=== PATIENT | female | born 1955 | race African-American/Black ===

== ENCOUNTER 2018-01-29 07:14 | Day surgery (SDC) | payer OTHER ==
[2018-01-25 11:02] VITALS: BMI 52.5
[2018-01-29] MEDS ORDERED: MIDAZOLAM HCL 2 MG/2 ML SINGLE DOSE VIAL ONE ×2 (10:34→10:48)
[2018-01-29] MEDS ORDERED: DEXAMETHASONE SOD PHOSPHATE/PF 10 MG/ML SDV ONE (10:47)
[2018-01-29] MEDS ORDERED: ROPIVACAINE HCL 0.5% 30ML VIAL ONE (10:48)
[2018-01-29] MEDS ORDERED: ceFAZolin SODIUM 1 GM VIAL IVPB ONE (11:29)
[2018-01-29] MEDS ORDERED: DEXAMETHASONE SOD PHOSPHATE 4 MG/1 ML VIAL ONE (11:32)
[2018-01-29] MEDS ORDERED: ONDANSETRON 4 MG/2 ML VIAL ONE (11:32)
[2018-01-29] MEDS ORDERED: ceFAZolin SODIUM 1 GM VIAL ONE (11:32)
[2018-01-29] MEDS ORDERED: PROPOFOL 20 ML ONE ×2 (11:46→12:35)
[2018-01-29] MEDS ORDERED: TRANEXAMIC ACID 1000 MG/10 ML VIAL ONE (12:18)
[2018-01-29] MEDS ORDERED: BENZOIN TINCTURE SWABSTICK TP ONE (12:39)
--- NOTE | 2018-01-29 13:02 | OP ---
Operative Note - Note: Operative Date: 01/29/18 Pre-Operative Diagnosis: Right shoulder impingement syndrome Operation: Right shoulder open: 1. Neer decompression (acromioplasty & CA ligament release). 2. Josep procedure (distal claviculectomy) Post-Operative Diagnosis: Same as Pre-op Surgeon: Duane Hedrick Supervisor Frame Assembly: Hang Hedrick Anesthesiologist/SELLING SPECIALIST: Mary Jane Floyd Anesthesia: Local (Interscalene block) Estimated Blood Loss (mls): 25 Fluid Volume Replaced (mls): 500 Operative Report Dictated: Yes
[2018-01-29 13:54] VITALS: PULSE 65
[2018-01-29 14:36] VITALS: BP 168/67; TEMP 98.1
--- NOTE | 2018-01-29 18:30 | OP ---
DATE OF OPERATION: 01/29/2018 SURGEON: Duane Hedrick M.D. [employer] DIRECTOR: Hang Hedrick M.D. PREOPERATIVE DIAGNOSIS: Right impingement syndrome shoulder with small rotator cuff tear. POSTOPERATIVE DIAGNOSIS: Right impingement syndrome shoulder with small rotator cuff tear. OPERATION PERFORMED: 1. Josep excision arthroplasty right pedicle. 2. Acromioplasty with transection of coracoacromial ligament. 3. Exploration of rotator cuff repair of small tear. ANESTHESIA: Conscious sedation with scalene block. ANTIBIOTICS GIVEN: 2 g Kefzol, 1 g vancomycin. OVERALL COMMENT: Morbid obesity. DESCRIPTION OF PROCEDURE: Patient correctly identified, brought in the operating room. Right upper extremity was prepped, predraped in the routine manner with Betadine scrub solution, wiped off with alcohol, DuraPrep applied, timeout was called. Imaging was available for intraoperative evaluation. The right upper shoulder region was free draped using U drapes both from above and below. Entire dressing was sealed including the axilla. Incision was made from the tip of the coracoid to the tip of the acromion. A dissection was taken through the skin and subcutaneous tissue to the level of the deltoid muscle, and plane was developed between the muscle and the subcutaneous tissue right to the level of the clavicle and above the clavicle. A sharp Hohmann placed on the posterior surface of the clavicle and distally on the anterior aspect of the clavicle, lifting the clavicle and keeping the undersurface out of harm's way. The AC joint clearly identified. The capsule was retained, and a beveled incision made into the clavicle, approximately 1 cm of clavicle was resected. This gave easy access to the coracoacromial ligament. Using an army-nav retractor, the muscle was lifted off the CA ligament. Peanut facilitated development of the plane. CA ligament was clearly identified visually and transected using a 15 blade knife and transected from the inferior margin of the CA ligament right up into the shoulder joint itself, extending into the plane beyond the CA ligament as this is a continual sheet of tissue accordingly. At this point, with finger dissection, adhesions were broken in subacromial space. Arm was gently pulled downwards. A Hohmann retractor was placed on the undersurface of the acromion which helped lever the femoral head downwards. A sharp beak of bone digging into the rotator cuff was identified, and thus using a small sagittal saw, this was resected, basically raising the roof of the shoulder joint itself. The cut was made parallel to the actual acromion itself. Once this had been performed, the bursa was incised and opened. The rotator cuff visualized directly by performing a shoulder complete range of motion. A small tear was noted and a number 1 Vicryl suture was utilized to repair this, that is a 1 single suture sealed a small tear which would become a big tear. The wounds were thoroughly lavaged, hemostasis was achieved. Closure: capsule deltoid muscle with 1 Vicryl, subcutaneous 1 Vicryl and skin 3-0 Monocryl with Steri-Strips. Drainage none. Wound was completely dry at the time of leaving from the OR. MD JELLY Geronimo/[id number] MTDD
[2018-01-29] MEDS ORDERED: PATIENT'S OWN MEDICATION (NON-FORMULARY) (Metformin Hcl [Metformin Hcl Er] 500 MG) PO SCH (22:00)
[2018-01-30] MEDS ORDERED: PATIENT'S OWN MEDICATION (NON-FORMULARY) (Valsartan/Hydrochlorothiazide [Valsartan-Hctz 16 PO SCH (10:00)
--- NOTE | 2018-02-05 14:25 | PATH ---
Surgical Pathology Report Patient Name: PANCHO RAI Med. Rec. #: [id number] /Age/Gender: 1955 (Age: 62) / F Account: [id number] Location: [facility] AMBULATORY Taken: 01/29/2018 Received: 01/29/2018 Reported: 02/03/2018 Physicians: Duane Hedrick M.D. Specimen(s) Received DISTAL CLAVICLE LEFT SHOULDER Clinical History Right shoulder impingement syndrome Final Diagnosis SHOULDER, DISTAL CLAVICLE, RIGHT, OPEN NEER DECOMPRESSION ARNOLD PROCEDURE: BONE AND CARTILAGE WITH DEGENERATIVE CHANGES. BONE MARROW WITH TRILINEAGE HEMATOPOIESIS. Electronically Signed Mago Lancaster M.D. Gross Description Received in formalin labeled "distal clavicle right shoulder," are 2 coyne, irregular portions of bone measuring 1.5 x 1.4 x 0.6 cm and 2.2 x 1.7 x 1.0 cm. Chief Ophthalmic Technician sections are submitted in one cassette, following decalcification. /02/02/2018 saudi02/02/2018
== END 2018-01-29 14:35 | disposition home or self-care (01) ==
LOC: FASU 07:14
PROVIDERS: ATTEND Orthopaedic Surgery Orthopaedic Surgery of the Spine
PROC: 0LQ10ZZ Repair Right Shoulder Tendon, Open Approach (ICD-10-PCS; 2018-01-29)
PROC: 0MN10ZZ Release Right Shoulder Bursa and Ligament, Open Approach (ICD-10-PCS; 2018-01-29)
PROC: 0PB90ZZ Excision of Right Clavicle, Open Approach (ICD-10-PCS; principal; 2018-01-29 09:30)
DX: M75.41 Impingement syndrome of right shoulder (principal); M75.111 Incomplete rotator cuff tear or rupture of right shoulder, not specified as traumatic
CPT/HCPCS: 82962; 88304-TC; 88311-TC